=== PATIENT | female | born 1940 | race Asian ===

== ENCOUNTER → 2016-11-10 | Outpatient (CLI) | payer OTHER, MEDICAID ==
[~2016-11-10] MED LIST: ALEN40TA2 PO; ATEN25TA PO; GEMF600T3 PO; METF500T4 PO; OMNIPAQUE 350 MG/ML, 100ML BOTTLE ONE
== END | disposition home or self-care (01) ==
LOC: CFH 09:51
PROVIDERS: ATTEND Internal Medicine
DX: K86.2 Cyst of pancreas (principal); N20.0 Calculus of kidney; K76.89 Other specified diseases of liver
CPT/HCPCS: 74170; Q9967

== ENCOUNTER → 2016-12-05 | Outpatient (CLI) | payer OTHER, MEDICAID ==
[~2016-12-05] MED LIST changes: -OMNIPAQUE 350 MG/ML, 100ML BOTTLE ONE
== END | disposition home or self-care (01) ==
LOC: CFH 08:45
PROVIDERS: ATTEND Internal Medicine Gastroenterology
DX: K86.2 Cyst of pancreas (principal); K21.9 Gastro-esophageal reflux disease without esophagitis; R63.4 Abnormal weight loss
CPT/HCPCS: 74000

== ENCOUNTER 2017-01-11 05:12 | Day surgery (SDC) | payer OTHER, MEDICAID ==
[~2017-01-11] VITALS: Ht 154.9 cm; Wt 39.0 kg
[2017-01-11] MEDS ORDERED: LACTATED RINGERS 1,000 ML IV SCH (05:49)
[2017-01-11] MEDS ORDERED: CHLORHEXIDINE MOUTHWASH 15 ML UDC MM ONE (06:00)
[2017-01-11] MEDS ORDERED: CIPROFLOXACIN/PMX 400MG/200ML 200 ML IVPB ONE (06:00)
[2017-01-11] MEDS ORDERED: OMEP40CA6 PO (06:22)
[2017-01-11] MEDS ORDERED: CALC1CAP8 PO (06:22)
[2017-01-11] MEDS ORDERED: ATEN50TA41 PO (06:22)
[2017-01-11] MEDS ORDERED: LOSA25TA5 PO (06:22)
[2017-01-11] MEDS ORDERED: ZOLP10TA PO (06:22)
[2017-01-11 06:23] VITALS: BP 148/80
[2017-01-11] MEDS ORDERED: CHLORHEXIDINE MOUTHWASH 15 ML UDC ONE (07:00)
[2017-01-11] MEDS ORDERED: PROPOFOL 10 MG/ML, 20ML ONE (07:28)
== END 2017-01-11 10:40 ==
LOC: OUT 05:12
PROVIDERS: ATTEND Internal Medicine Gastroenterology
DX: K29.50 Unspecified chronic gastritis without bleeding (principal); K86.2 Cyst of pancreas; E11.9 Type 2 diabetes mellitus without complications; I10 Essential (primary) hypertension; K21.9 Gastro-esophageal reflux disease without esophagitis
CPT/HCPCS: 43238; 43239; 82962; 88104; 88305; 93005; J2704; J7120

== ENCOUNTER → 2017-03-09 | Outpatient (CLI) | payer OTHER, MEDICAID ==
[~2017-03-09] MED LIST changes: +ATEN50TA41 PO; +CALC1CAP8 PO; +LOSA25TA5 PO; +OMEP40CA6 PO; +ZOLP10TA PO
== END | disposition home or self-care (01) ==
LOC: CFH 10:01
PROVIDERS: ATTEND Internal Medicine
DX: Z12.31 Encounter for screening mammogram for malignant neoplasm of breast (principal); Z85.3 Personal history of malignant neoplasm of breast; Z90.11 Acquired absence of right breast and nipple
CPT/HCPCS: G0202

== ENCOUNTER → 2017-08-14 | Outpatient (CLI) | payer OTHER, MEDICAID | END | disposition home or self-care (01) | LOC: CFH 09:48 | PROVIDERS: ATTEND Internal Medicine Gastroenterology | DX: K86.2 Cyst of pancreas (principal); K76.89 Other specified diseases of liver | CPT/HCPCS: 74181 ==

== ENCOUNTER 2017-09-20 06:52 | Day surgery (SDC) | payer OTHER, MEDICAID ==
[~2017-09-20] VITALS: Ht 154.9 cm; Wt 40.0 kg
[2017-09-20] MEDS ORDERED: LACTATED RINGERS 1,000 ML IV SCH (07:21)
[2017-09-20] MEDS ORDERED: CIPROFLOXACIN/PMX 400MG/200ML 200 ML IVPB ONE (07:30)
[2017-09-20] MEDS ORDERED: CHLORHEXIDINE 15 ML BOTTLE MM ONE (07:30)
[2017-09-20 07:56] VITALS: BP 145/73
[2017-09-20] MEDS ORDERED: PROPOFOL 10 MG/ML, 20ML ONE (08:20)
[2017-09-20] MEDS ORDERED: morphine SULFATE 10 MG/ML, 1ML IV PRN (09:00)
[2017-09-20] MEDS ORDERED: MIDAZOLAM 1 MG/ML, 2ML IV PRN (09:00)
[2017-09-20] MEDS ORDERED: LABETALOL 5MG/ML, 20ML IV PRN (09:00)
[2017-09-20] MEDS ORDERED: OXYcodone 5 MG/5 ML ORAL.SOL UDC PO PRN (09:00)
[2017-09-20] MEDS ORDERED: MEPERIDINE/PF 25MG/0.5ML IVPush PRN (09:00)
[2017-09-20] MEDS ORDERED: PROMETHAZINE 12.5 MG SUPP PR PRN (09:00)
[2017-09-20] MEDS ORDERED: FENTANYL PF 100 MCG/2ML IV PRN (09:00)
[2017-09-20] MEDS ORDERED: ONDANSETRON 2MG/ML, 2ML IVPush PRN (09:00)
[2017-09-20] MEDS ORDERED: ALBUTEROL SULFATE 2.5 MG/3 ML NPPB PRN (09:00)
[2017-09-20] MEDS ORDERED: hydrALAzine 20 MG/ML, 1ML IV PRN (09:00)
== END 2017-09-20 10:55 ==
LOC: OUT 06:52
PROVIDERS: ATTEND Internal Medicine Gastroenterology
DX: K86.2 Cyst of pancreas (principal); K29.50 Unspecified chronic gastritis without bleeding; K82.8 Other specified diseases of gallbladder; K21.9 Gastro-esophageal reflux disease without esophagitis; I10 Essential (primary) hypertension; E11.9 Type 2 diabetes mellitus without complications; E78.00 Pure hypercholesterolemia, unspecified; Z85.3 Personal history of malignant neoplasm of breast; Z90.11 Acquired absence of right breast and nipple
CPT/HCPCS: 43238; 82962; 88305; J0744; J2704; J7120

== ENCOUNTER → 2018-04-22 | Outpatient (CLI) | payer OTHER, MEDICAID ==
[~2018-04-22] MED LIST changes: -GEMF600T3 PO; +GEMF600T4 PO; -LOSA25TA5 PO; +LOSA25TA6 PO; +METF500T17 PO; -METF500T4 PO
== END | disposition home or self-care (01) ==
LOC: RAD 11:54
PROVIDERS: ATTEND Obstetrics & Gynecology
DX: D26.1 Other benign neoplasm of corpus uteri (principal)
CPT/HCPCS: 76830

== ENCOUNTER → 2018-12-23 | Outpatient (CLI) | payer MEDICARE, MEDICAID ==
[~2018-12-23] MED LIST changes: -GEMF600T4 PO; +GEMF600T8 PO; +LOSA25TA25 PO; -LOSA25TA6 PO
== END | disposition home or self-care (01) ==
LOC: CFH 09:19
PROVIDERS: ATTEND Internal Medicine
DX: K86.2 Cyst of pancreas (principal)
CPT/HCPCS: 74181

== ENCOUNTER → 2020-01-07 | Outpatient (CLI) | payer MEDICARE, MEDICAID ==
[~2020-01-07] MED LIST changes: +OMEP40CA42 PO; -OMEP40CA6 PO
== END | disposition home or self-care (01) ==
LOC: CVU 10:43
PROVIDERS: ATTEND Internal Medicine Cardiovascular Disease
DX: I08.1 Rheumatic disorders of both mitral and tricuspid valves (principal); I10 Essential (primary) hypertension; R07.9 Chest pain, unspecified
CPT/HCPCS: 93306

== ENCOUNTER 2020-07-28 22:15 | Emergency (ER) | payer MEDICARE, MEDICAID ==
[~2020-07-28] VITALS: Ht 154.9 cm; Wt 42.0 kg
[2020-07-28] MEDS ORDERED: MORPHINE SULFATE 4 MG/ML, 1ML IVPush PRN (23:00)
[2020-07-28] MEDS ORDERED: SODIUM CHLORIDE FLUSH 10ML SYR IVF ONE (23:00)
[2020-07-28] MEDS ORDERED: ONDANSETRON 2MG/ML, 2ML IVPush ONE (23:00)
[2020-07-28] MEDS ORDERED: PANTOPRAZOLE 40 MG IV IVPush ONE (23:00)
[2020-07-28 23:13] LABS: BASOPHILS % (AUTO) 0 % (0-1); EOSINOPHILS % (AUTO) 0 % (1-7); LYMPHOCYTES % (AUTO) 9 % (22-44); MD NO; MEAN CORPUSCULAR HEMOGLOBIN 31.3 pg (27.0-34.8); MEAN CORPUSCULAR HGB CONC 34.1 g/dL (32.4-35.8); MEAN PLATELET VOLUME 6.8 fL (7.4-10.4); MONOCYTES % (AUTO) 5 % (2-9); NEUTROPHILS % (AUTO) 85 % (42-75); PLATELET COUNT 295 x10^3/uL (130-400); RED BLOOD COUNT 4.02 x10^6/uL (3.82-5.3); RED CELL DISTRIBUTION WIDTH 12.1 % (9.6-15.2)
[2020-07-28 23:25] LABS: ALANINE AMINOTRANSFERASE 20 U/L (12-78); ALBUMIN 4.1 g/dL (3.4-5.0); ANION GAP 6 mmol/L (5-15); CALCIUM 8.5 mg/dL (8.5-10.1); CHLORIDE 96 mmol/L (98-107); CREATININE 0.77 mg/dL (0.55-1.02)
[2020-07-28 23:29] LABS: ALKALINE PHOSPHATASE 62 U/L (45-117); BILIRUBIN,TOTAL 0.4 mg/dL (0.2-1.0); TROPONIN I < 0.015 ng/mL (0.000-0.045)
[2020-07-28 23:38] LABS: INTERNATIONAL NORMALIZED RATIO 0.96 (0.93-1.1); PROTHROMBIN TIME 10.3 Seconds (9.6-11.5)
[2020-07-28] MEDS ORDERED: ONDANSETRON 2MG/ML, 2ML ONE (23:41)
[2020-07-28] MEDS ORDERED: MORPHINE SULFATE 4 MG/ML, 1ML ONE (23:42)
[2020-07-28] MEDS ORDERED: PANTOPRAZOLE 40 MG IV ONE (23:42)
[2020-07-28] MEDS ORDERED: OMNIPAQUE 350 MG/ML, 100ML BOTTLE ONE (23:51)
[2020-07-29 00:55] VITALS: BP 142/79
== END 2020-07-29 00:57 | disposition home or self-care (01) ==
LOC: ED 07-29 00:11
DX: K86.3 Pseudocyst of pancreas (principal); R10.13 Epigastric pain; R07.89 Other chest pain; R11.2 Nausea with vomiting, unspecified; I10 Essential (primary) hypertension; E11.9 Type 2 diabetes mellitus without complications; R94.31 Abnormal electrocardiogram [ECG] [EKG]; Z90.10 Acquired absence of unspecified breast and nipple
CPT/HCPCS: 36415; 71045; 74177; 80053; 83690; 84484; 85025; 85610; 85730; 86850; 86900; 93005; 96374; 96375; 99285; C9113; J2270; J2405; Q9967

== ENCOUNTER 2020-09-02 07:00 | Day surgery (SDC) | payer MEDICARE, MEDICAID ==
[2020-08-30 13:36] LABS: BASOPHILS % (AUTO) 1 % (0-1); EOSINOPHILS % (AUTO) 2 % (1-7); LYMPHOCYTES % (AUTO) 21 % (22-44); MEAN CORPUSCULAR HGB CONC 33.7 g/dL (32.4-35.8); MONOCYTES % (AUTO) 12 % (2-9); NEUTROPHILS % (AUTO) 64 % (42-75); PLATELET COUNT 376 x10^3/uL (130-400); RED BLOOD COUNT 4.03 x10^6/uL (3.82-5.3); RED CELL DISTRIBUTION WIDTH 12.2 % (9.6-15.2)
[2020-08-30 13:38] LABS: MD NO
[2020-08-30 13:46] LABS: CHLORIDE 97 mmol/L (98-107)
[2020-08-30 13:54] LABS: ALANINE AMINOTRANSFERASE 17 U/L (12-78); ALBUMIN 4.1 g/dL (3.4-5.0); ALKALINE PHOSPHATASE 61 U/L (45-117); ANION GAP 6 mmol/L (5-15); BILIRUBIN,TOTAL 0.5 mg/dL (0.2-1.0); CALCIUM 9.9 mg/dL (8.5-10.1); CREATININE 0.61 mg/dL (0.55-1.02); TOTAL PROTEIN 7.8 g/dL (6.4-8.2)
[~2020-09-02] VITALS: Ht 154.9 cm; Wt 41.4 kg
[~2020-09-02 07:00] MED LIST changes: +CALC-332 PO; +CHOL10003 PO; +FAMO-79 PO; +GEMF-31 PO; -GEMF600T8 PO; +LINA5TAB PO; +OMEP-110 PO; +PRAV40TA2 PO; +TRAZ50TA66 PO
[2020-09-02] MEDS ORDERED: hydrALAzine 20 MG/ML, 1ML IV PRN (07:30)
[2020-09-02] MEDS ORDERED: FENTANYL PF 100 MCG/2ML IV PRN (07:30)
[2020-09-02] MEDS ORDERED: ONDANSETRON 2MG/ML, 2ML IVPush PRN (07:30)
[2020-09-02] MEDS ORDERED: morphine SULFATE 10 MG/ML, 1ML IVPush PRN (07:30)
[2020-09-02] MEDS ORDERED: CHLORHEXIDINE 15 ML UDC MM ONE (07:30)
[2020-09-02] MEDS ORDERED: LACTATED RINGERS 1,000 ML IV SCH (07:30)
[2020-09-02] MEDS ORDERED: PROMETHAZINE 25 MG/ML, 1ML IVPush PRN (07:30)
[2020-09-02] MEDS ORDERED: OXYcodone 5 MG/5 ML ORAL.SOL UDC PO PRN (07:30)
[2020-09-02] MEDS ORDERED: LABETALOL 5MG/ML, 20ML IV PRN (07:30)
[2020-09-02 07:57] VITALS: BP 151/80
[2020-09-02] MEDS ORDERED: FENTANYL PF 100 MCG/2ML ONE (08:18)
[2020-09-02] MEDS ORDERED: MIDAZOLAM 1 MG/ML, 2ML ONE (08:18)
[2020-09-02] MEDS ORDERED: CIPROFLOXACIN/PMX 400MG/200ML 200 ML ONE (08:26)
[2020-09-02] MEDS ORDERED: PROPOFOL 10 MG/ML, 20ML ONE (08:42)
== END 2020-09-02 10:40 | disposition home or self-care (01) ==
LOC: OUT 07:00
PROVIDERS: ATTEND Internal Medicine Gastroenterology
DX: K86.2 Cyst of pancreas (principal); K29.50 Unspecified chronic gastritis without bleeding; K21.9 Gastro-esophageal reflux disease without esophagitis; I10 Essential (primary) hypertension; E78.5 Hyperlipidemia, unspecified; Z20.822 Contact with and (suspected) exposure to COVID-19; Z79.84 Long term (current) use of oral hypoglycemic drugs; Z79.899 Other long term (current) drug therapy; Z90.11 Acquired absence of right breast and nipple
CPT/HCPCS: 36415; 43239; 43242; 80053; 82962; 85025; 88305; 93005; J0744; J2250; J2704; J3010; J7120; U0003